=== PATIENT | female | born 1995 | race Caucasian/White ===

== ENCOUNTER 2018-09-17 17:35 | Emergency (ER) | payer BC, OTHER ==
[2018-09-17 17:40] VITALS: BP 137/84; PULSE 89; RESP 18; TEMP 98.2
[2018-09-17] MEDS ORDERED: PROPARACAINE 0.5% OPHTH DROPS 15 ML BTL RIGHT EYE STA (17:52)
--- NOTE | 2018-09-17 17:58 | ED ---
General Adult HPI - General Chief complaint: Eye Problems Stated complaint: eye problems Time Seen by Provider: 09/17/18 17:41 Source: patient, RN notes reviewed, old records reviewed Mode of arrival: ambulatory Limitations: no limitations - History of Present Illness Initial comments: 22-year-old female patient with no pertinent past medical history presents to ED at recommendation of urgent care. Patient reports that yesterday she accidentally got some makeup in her eye while applying it. When she went to remove it she developed a sharp pain in her eye, this continued throughout the day yesterday. Pt also developed a migraine headache and some pressure behind her R eye. Pt states that this resolved today. Pt reports that she was recommended to present to ED from urgent care in order to have IOP checked. Pt states that vision in R eye is slightly blurry. Systemic: Pt denies fatigue, myalgia, fever/chills, rash. Pt denies weakness, night sweats, weight loss. Neuro: Pt denies headache, syncope or pre-syncope. HEENT: Pt denies ocular discharge or irritation, otalgia, rhinorrhea, pharyngitis or notable lymphadenopathy. Cardiopulmonary: Pt denies chest pain, SOB, heart palpitations, dyspnea on exertion. Abdominal/GI: Pt denies abdominal pain, n/v/d. : Pt denies dysuria, burning w/ urination, frequency/urgency. Denies new onset urinary or bowel incontinence. MSK: Pt denies myalgia, loss of strength or function in extremities. Neuro: Pt denies new onset weakness, paresthesias. - Related Data Allergies Allergy/AdvReac Type Severity Reaction Status Date / Time No Known Allergies Allergy Verified 09/17/18 17:36 Review of Systems ROS Statement: Those systems with pertinent positive or pertinent negative responses have been documented in the HPI. ROS Other: All systems not noted in ROS Statement are negative. Past Medical History Past Medical History: No Reported History History of Any Multi-Drug Resistant Organisms: None Reported Additional Past Surgical History / Comment(s): bladder surgery Past Psychological History: No Psychological Hx Reported Smoking Status: Current every day smoker Past Alcohol Use History: None Reported Past Drug Use History: Marijuana General Exam - General Exam Comments Initial Comments: Constitutional: NAD, AOX3, Pt has pleasant affect. HEENT: NC/AT, trachea midline, neck supple, no lymphadenopathy. Posterior pharynx non erythematous, without exudates. External ears appear normal, without discharge. Mucous membranes moist. Eyes PERRLA, EOM intact. There is no scleral icterus. No pallor noted. IOP average of 17 bilaterally. Flourescence stain in R eye did not reveal area of uptake, or corneal abrasion. Cardiopulmonary: RRR, no murmurs, rubs or gallops, no JVD noted. Lungs CTAB in anterior and posterior willis. No peripheral edema. Abdominal exam: Abdomen soft and non-distended. Abdomen non-tender to palpation in all 4 quadrants. Bowel sounds active in LLQ. No hepatosplenomegaly. No ecc hymosis Neuro: CN II-XII intact. No nuchal rigidity. No focal deficit or facial droop. MSK: No posterior calf tenderness bilaterally, homans sign negative bilaterally. Posterior tibialis and radial pulse +2 bilaterally. Sensation intact in upper and lower extremities. Full active ROM in upper and lower extremities, 5/5 stregnth. Limitations: no limitations Course Vital Signs 09/17/18 17:36 Temperature 98.2 F Pulse Rate 89 Respiratory 18 Rate Blood Pressure 137/84 O2 Sat by Pulse 98 Oximetry Medical Decision Making - Medical Decision Making 22-year-old female patient with no pertinent past medical history presents to ED at recommendation of urgent care. Patient reports that yesterday she accidentally got some makeup in her eye while applying it. When she went to remove it she developed a sharp pain in her eye, this continued throughout the day yesterday. Pt also developed a migraine headache and some pressure behind her R eye. Pt states that this resolved today. Pt reports that she was recommended to present to ED from urgent care in order to have IOP checked. Pt states that vision in R eye is slightly blurry. Patient vital signs stable, afebrile. Physical exam displayed: Eyes PERRLA, EOM intact. IOP average of 17 bilaterally. Florescence stain in R eye did not reveal area of uptake, or corneal abrasion. Findings were explained to patient at length. Patient to follow up with commercial electrician tomorrow. Patient to follow-up with PCP in 1-2 days. Patient to return to ED if new s/sx develop or if condition worsens in anyway. Case discussed with Dr. Waterman. Disposition Clinical Impression: Ophthalmalgia Disposition: HOME SELF-CARE Condition: Stable Instructions (If sedation given, give patient instructions): Eye Pain (ED) Additional Instructions: Patient to adhere to previously discussed treatment plan and will take medication(s) as directed. Patient to follow up with PCP in 1-2 days. Patient to return to ED if symptoms do not improve. Is patient prescribed a controlled substance at d/c from ED?: No Referrals: None,Stated [Primary Care Provider] - 1-2 days Kelton Cook MD [STAFF PHYSICIAN] - 1-2 days [facility] [NON-STAFF] - 1-2 days
== END 2018-09-17 18:45 | disposition home or self-care (01) ==
LOC: EC 17:35
DX: H57.11 Ocular pain, right eye (principal); H53.8 Other visual disturbances; F17.200 Nicotine dependence, unspecified, uncomplicated; Z86.69 Personal history of other diseases of the nervous system and sense organs
CPT/HCPCS: 99283